=== PATIENT | female | born 1995 | race African-American/Black ===

== ENCOUNTER 2017-08-30 10:13 | Emergency (ER) | payer OTHER, MEDICAID ==
[~2017-08-30] VITALS: Ht 165.1 cm; Wt 55.0 kg
[~2017-08-30 10:13] MED LIST: CYCL-36 PO; DICL50 PO
[2017-08-30 10:15] VITALS: BP 151/65; PULSE 89; RESP 12; TEMP 98.6; O2SAT 99
[2017-08-30] MEDS ORDERED: ONDANSETRON HCL 4 MG/2 ML VIAL IV PUSH ONE (11:45)
[2017-08-30 12:06] LABS: AUTOMATED NEUTROPHIL # 9.9 TH/MM3 (1.8-7.7); BASOPHIL % 0.3 % (0.0-2.0); EOSINOPHIL % 0.4 % (0.0-4.0); HEMO FLAGS DIFF FINAL; LYMPH % 11.6 % (9.0-44.0); LYMPHOCYTE # 1.4 TH/MM3 (1.0-4.8); MEAN CELL VOLUME 90.7 FL (80.0-100.0); MEAN CORPUSCULAR HGB CONC 35.3 % (32.0-36.0); MONO % 5.1 % (0.0-8.0); NEUT % 82.6 % (16.0-70.0); PLATELET COUNT 152 TH/MM3 (150-450); RED BLOOD COUNT 3.97 MIL/MM3 (4.00-5.30); RED CELL DISTRIBUTION WIDTH 13.4 % (11.6-17.2)
[2017-08-30 12:23] LABS: BICARBONATE 23.6 MEQ/L (21.0-32.0); POTASSIUM 3.7 MEQ/L (3.5-5.1)
--- NOTE | 2017-08-30 13:28 | PD ---
HPI Chief Complaint: Related Problem Time Seen by Provider: 11:23 Travel History International Travel<30 days: No Contact w/Intl Traveler<30days: No Traveled to known affect area: No History of Present Illness HPI 21yo F who is [id number] by LMP of 06/25/17 here with c/o nausea and vomiting. Denies any fever, chest pain, sob, abdominal pain, dysuria, hematuria , vaginal discharge or bleeding. Pt had an US this already. PFSH Past Medical History Medical History: Denies Significant Hx Diminished Hearing: No Immunizations Current: No Influenza Vaccination: No ?: LMP: 06/25/17 Past Surgical History Surgical History: No Previous Surgery Social History Alcohol Use: No (RARE, PT DENIES) Tobacco Use: No (RARE, PT DENIES) Substance Use: No Allergies-Medications (Allergen,Severity, Reaction): Coded Allergies: No Known Allergies (Unverified , 11/02/14) Reported Meds & Prescriptions Reported Meds & Active Scripts Active Zofran Odt (Ondansetron Odt) 4 Mg Tab 4 Mg SL Q12HR PRN Flexeril (Cyclobenzaprine HCl) 10 Mg Tab 10 Mg PO TID Voltaren (Diclofenac Sodium) 50 Mg Tabec 50 Mg PO TID Review of Systems Except as stated in HPI: all other systems reviewed are Neg Physical Exam Narrative GENERAL: 21yo F not in distress. SKIN: Focused skin assessment warm/dry. HEAD: Atraumatic. Normocephalic. EYES: Pupils equal and round. No scleral icterus. No injection or drainage. CARDIOVASCULAR: Regular rate and rhythm. No murmur appreciated. RESPIRATORY: No accessory muscle use. Clear to auscultation. Breath sounds equal bilaterally. GASTROINTESTINAL: Abdomen soft, non-tender, nondistended. No rebound tenderness or guarding. MUSCULOSKELETAL: No obvious deformities. No clubbing. No cyanosis. No edema. NEUROLOGICAL: Awake and alert. No obvious cranial nerve deficits. Motor grossly within normal limits. Normal speech. PSYCHIATRIC: Appropriate mood and affect; insight and judgment normal. Data Data Last Documented VS Vital Signs Date Time Temp Pulse Resp B/P (MAP) Pulse Ox O2 Delivery O2 Flow Rate FiO2 08/30/17 10:15 98.6 89 12 151/65 (93) 99 Orders Orders Ondansetron Inj (Zofran Inj) (08/30/17 11:45) Complete Blood Count With Diff (08/30/17 11:37) Basic Metabolic Panel (Bmp) (08/30/17 11:37) Beta Hcg (Quant/Titer) (08/30/17 11:37) Urinalysis - C+S If Indicated (08/30/17 11:37) Ed Poc Ultrasound (08/30/17 ) Ed Poc Ultrasound (08/30/17 ) Ed Discharge Order (08/30/17 14:17) Labs Laboratory Tests Test 08/30/17 11:55 08/30/17 13:15 White Blood Count 12.0 TH/MM3 Red Blood Count 3.97 MIL/MM3 Hemoglobin 12.7 GM/DL Hematocrit 36.0 % Mean Corpuscular Volume 90.7 FL Mean Corpuscular Hemoglobin 32.0 PG Mean Corpuscular Hemoglobin Concent 35.3 % Red Cell Distribution Width 13.4 % Platelet Count 152 TH/MM3 Mean Platelet Volume 10.4 FL Neutrophils (%) (Auto) 82.6 % Lymphocytes (%) (Auto) 11.6 % Monocytes (%) (Auto) 5.1 % Eosinophils (%) (Auto) 0.4 % Basophils (%) (Auto) 0.3 % Neutrophils # (Auto) 9.9 TH/MM3 Lymphocytes # (Auto) 1.4 TH/MM3 Monocytes # (Auto) 0.6 TH/MM3 Eosinophils # (Auto) 0.0 TH/MM3 Basophils # (Auto) 0.0 TH/MM3 CBC Comment DIFF FINAL Differential Comment Blood Urea Nitrogen 5 MG/DL Creatinine 0.61 MG/DL Random Glucose 82 MG/DL Calcium Level 9.1 MG/DL Sodium Level 138 MEQ/L Potassium Level 3.7 MEQ/L Chloride Level 108 MEQ/L Carbon Dioxide Level 23.6 MEQ/L Anion Gap 6 MEQ/L Estimat Glomerular Filtration Rate 147 ML/MIN Human Chorionic Gonadotropin, Quant 881266 MIU/ML Urine Color YELLOW Urine Turbidity HAZY Urine pH 5.5 Urine Specific Stanley 1.023 Urine Protein TRACE mg/dL Urine Glucose (UA) NEG mg/dL Urine Ketones 80 mg/dL Urine Occult Blood NEG Urine Nitrite NEG Urine Bilirubin NEG Urine Urobilinogen LESS THAN 2.0 MG/DL Urine Leukocyte Esterase NEG Urine RBC 1 /hpf Urine WBC 1 /hpf Urine Squamous Epithelial Cells 4 /hpf Urine Mucus FEW /lpf Microscopic Urinalysis Comment CULT NOT INDICATED MDM Medical Decision Making Medical Screen Exam Complete: Yes Emergency Medical Condition: Yes Differential Diagnosis Hyperemesis gravidarum vs. UTI Narrative Course 21yo F with early here with nausea and vomiting. Pt denies any abdominal pain, vaginal bleeding or discharge. Labs reviewed, WBC 12. BMP unremarkable. bHCG [id number]. UA showed 80 ketones. WBC 1. Culture not indicated. Bedside US showed IUP with FHR and movement. Pt given zofran and nausea improved. Pt is tolerating PO now. Return precautions given. Procedures Procedure Narrative Emergency Department Pelvic ultrasound was performed with patient consent. The curvilinear probe was used in the transverse and sagittal views within the suprapubic region revealing single intrauterine . heart rate was 169bpm. Diagnosis Primary Impression: Nausea/vomiting in Patient Instructions: General Instructions Departure Forms: Tests/Procedures Additional Instructions: Please follow up with your OBGYN in 2-3 days. Return to the ED if symptoms worsen. Med/Other Pt SpecificInfo: Prescription(s) given Scripts Ondansetron Odt (Zofran Odt) 4 Mg Tab 4 MG SL Q12HR Y for Nausea/Vomiting, #6 TAB 0 Refills Prov: Dulce Michaud DO 08/30/17 Disposition: 01 DISCHARGE HOME Condition: Stable Dulce Michaud DO Aug 30, 2017 13:28
[2017-08-30 13:53] LABS: BLOOD, URINE NEG (NEG); COMMENT (UR) CULT NOT INDICATED; CULTURE IF INDICATED CULT NOT INDICATED; GLUCOSE,URINE NEG (NEG); KETONE, URINE 80 mg/dL (NEG); MUCUS URINE FEW /lpf (OCC); NITRITE,URINE NEG (NEG); PH, URINE 5.5 (5.0-8.5); SQUAMOUS EPITHELIAL CELL URINE 4 /hpf (0-5); URINE COLOR YELLOW (YELLW/STRAW)
[2017-08-30] MEDS ORDERED: ZOFR4TAB3 SL (14:17)
[2017-08-30 14:26] VITALS: BP 134/70
== END 2017-08-30 14:45 | disposition home or self-care (01) ==
LOC: NEPD 10:13
DX: O21.9 Vomiting of pregnancy, unspecified (principal); Z3A.09 9 weeks gestation of pregnancy
CPT/HCPCS: 80048; 81001; 84702; 85025; 96374; 99285; J2405

== ENCOUNTER 2018-03-16 23:51 | Inpatient (IN) | payer OTHER, MEDICAID ==
[~2018-03-16] VITALS: Ht 165.1 cm; Wt 59.0 kg
[~2018-03-16 23:51] MED LIST changes: +ZOFR4TAB3 SL
[2018-03-17] MEDS: LACTATED RINGER'S 1000 ML INJ 1,000 ML IV SCH ×2 (00:17→16:17)
[2018-03-17] MEDS ORDERED: LACTATED RINGER'S 1000 ML INJ 1,000 ML IV PRN (00:17)
[2018-03-17] MEDS ORDERED: LIDOCAINE HCL 1% PF 30 ML VIAL ONE (00:28)
[2018-03-17] MEDS ORDERED: OXYTOCIN 30 UNITS-500ML PREMIX 500 ML IV ONE (00:30)
[2018-03-17] MEDS ORDERED: LIDOCAINE HCL 1% 50 ML VIAL I-DERMAL PRN (00:30)
[2018-03-17] MEDS ORDERED: CITRIC ACID-SODIUM CITRATE LIQ 30 ML UDC PO SCH (00:30)
[2018-03-17] MEDS ORDERED: LIDOCAINE HCL 1% 50 ML VIAL INFIL PRN (00:30)
[2018-03-17] MEDS ORDERED: MINERAL OIL 10 ML VIAL TOPICAL PRN (00:30)
[2018-03-17] MEDS ORDERED: SODIUM CHLORID 0.9% 500 ML INJ 500 ML IV PRN (00:30)
[2018-03-17] MEDS ORDERED: SODIUM CHLOR 0.9% 1000 ML INJ 1,000 ML IV PRN (00:37)
[2018-03-17 00:50] LABS: AUTOMATED NEUTROPHIL # 8.6 TH/MM3 (1.8-7.7); BASOPHIL # 0.1 TH/MM3 (0-0.2); BASOPHIL % 0.9 % (0.0-2.0); EOSINOPHIL # 0.1 TH/MM3 (0-0.4); EOSINOPHIL % 0.5 % (0.0-4.0); HEMATOCRIT 39.9 % (35.0-46.0); HEMOGLOBIN 13.5 GM/DL (11.6-15.3); LYMPH % 23.7 % (9.0-44.0); MEAN CELL VOLUME 87.9 FL (80.0-100.0); MEAN CORPUSCULAR HEMOGLOBIN 29.8 PG (27.0-34.0); MEAN CORPUSCULAR HGB CONC 33.9 % (32.0-36.0); MEAN PLATELET VOLUME 11.5 FL (7.0-11.0); MONO % 7.3 % (0.0-8.0); MONOCYTE # 0.9 TH/MM3 (0-0.9); NEUT % 67.6 % (16.0-70.0); PLATELET COUNT 176 TH/MM3 (150-450); RED BLOOD COUNT 4.54 MIL/MM3 (4.00-5.30); RED CELL DISTRIBUTION WIDTH 13.9 % (11.6-17.2); WHITE BLOOD COUNT 12.8 TH/MM3 (4.0-11.0)
--- NOTE | 2018-03-17 01:04 | HHI.HP ---
History & Physical H&P HPI Chief Complaint ctxs, lof Date Seen: March 17, 2018 Time Seen: 00:55 Travel History International Travel<30 Days: No Contact w/Intl Traveler<30Days: No Known Affected Area: No History of Present Illness HPI pt. is a 22 y/o @ 37 6/7 weeks present w/ c/o ctxs and lof. on present pt. noted to be gross srom and cervix 5/100/0. pt. states had srom at 2200. + FM. Weeks Gestation: 37 Para: 0 : 1 History (Limited) History Past Medical History Medical History: Denies Significant Hx Obstetric History Obstetric History Past Surgical History Surgical History: No Previous Surgery Family History Family History: Negative Social History Alcohol Use: No Tobacco Use: No Substance Abuse: No Allergies-Medications Allergies-Medications (Allergen,Severity, Reaction): Coded Allergies: No Known Allergies (Unverified , 11/02/14) Home Meds Active Scripts Ondansetron Odt (Zofran Odt) 4 Mg Tab, 4 MG SL Q12HR Y for Nausea/Vomiting, #6 TAB 0 Refills Prov:Dulce Michaud DO 08/30/17 Cyclobenzaprine Hcl (Flexeril) 10 Mg Tab, 10 MG PO TID, #21 TAB Prov:Phil Childress MD 11/02/14 Diclofenac Sod (Voltaren) 50 Mg Tabec, 50 MG PO TID, #21 TAB Prov:Phil Childress MD 11/02/14 ROS Review of Systems Except as stated in HPI: all other systems reviewed are Neg Physical Exam Physical Exam Narrative GENERAL: Well-nourished, well-developed patient. SKIN: Warm and dry. HEAD: Normocephalic and atraumatic. EYES: No scleral icterus. No injection or drainage. ENT: No nasal drainage noted. Mucous membranes pink. Airway patent. NECK: Supple, trachea midline. No JVD. CARDIOVASCULAR: Regular rate and rhythm without murmurs, gallops, or rubs. RESPIRATORY: Breath sounds equal bilaterally. No accessory muscle use. ABDOMEN/GI: Abdomen soft, non-tender, bowel sounds present, no rebound, no guarding Gravid GENITOURINARY: External Genitalia: intact and normal in appearance Cervix: ant Dilatation: 5 Effacement: 100 Station: 0 Presentation: cephalic Membranes: ruptured Uterine Contractions: q2min FHT's: Category: 1 Reactive: + Variability: mod EXTREMITIES: No cyanosis or edema. BACK: Nontender without obvious deformity. No CVA tenderness. NEUROLOGICAL: Awake and alert. Motor and sensory grossly within normal limits. Five out of 5 muscle strength in all muscle groups. Normal speech. Data Data Data Vital Signs Reviewed: Yes Orders Orders Ob (2e) Additional Admit Info (03/17/18 00:11) Admit To Inpatient (03/17/18 ) Code Status (03/17/18:17) Vital Signs (Adult) .Per protocol (03/17/18:17) Activity Oob Ad Katlin (03/17/18:17) Heart (03/17/18:17) Amnioinfusion (03/17/18:17) Urinary Catheter Management .ONCE (03/17/18:17) Diet Liquid (03/17/18 Breakfast) Lactated Ringer's 1000 Ml Inj (Lr 1000 M (03/17/18 00:17) Lactated Ringer's 1000 Ml Inj (Lr 1000 M (03/17/18 00:17) Sodium Chlorid 0.9% 500 Ml Inj (Ns 500 M (03/17/18 00:30) Sodium Chlor 0.9% 1000 Ml Inj (Ns 1000 M (03/17/18 00:37) Lidocaine 1% Inj (50 Ml) (Xylocaine 1% I (03/17/18 00:30) Citric Acid-Sodium Citrate Liq (Bicitra (03/17/18 00:30) Fentanyl Inj (Fentanyl Inj) (03/17/18 00:30) Fentanyl Inj (Fentanyl Inj) (03/17/18 00:30) Complete Blood Count With Diff (03/17/18:17) Hold Clot (03/17/18:17) Abo/Rh Blood Type (03/17/18:17) Urinalysis - C+S If Indicated (03/17/18 00:17) Drug Screen, Random Urine (03/17/18 00:17) Ob/Psych Drug Screen, Urine (03/17/18:17) Resp Oxygen Non Rebreathe Mask (03/17/18 ) ^ Epidural / Intrathecal Infus (03/17/18 00:17) Oxytocin 30 Units-500ml Premix (Pitocin (03/17/18 00:30) Lidocaine 1% Inj (50 Ml) (Xylocaine 1% I (03/17/18 00:30) Light Mineral Oil (Muri-Lube Oil) (03/17/18 00:30) Inpatient Certification (03/17/18 ) Lidocaine Pf 1% Inj (Xylocaine-Mpf 1% In (03/17/18 00:28) Labs Laboratory Tests Test 03/17/18 00:20 White Blood Count 12.8 Red Blood Count 4.54 Hemoglobin 13.5 Hematocrit 39.9 Mean Corpuscular Volume 87.9 Mean Corpuscular Hemoglobin 29.8 Mean Corpuscular Hemoglobin Concent 33.9 Red Cell Distribution Width 13.9 Platelet Count 176 Mean Platelet Volume 11.5 Neutrophils (%) (Auto) 67.6 Lymphocytes (%) (Auto) 23.7 Monocytes (%) (Auto) 7.3 Eosinophils (%) (Auto) 0.5 Basophils (%) (Auto) 0.9 Neutrophils # (Auto) 8.6 Lymphocytes # (Auto) 3.0 Monocytes # (Auto) 0.9 Eosinophils # (Auto) 0.1 Basophils # (Auto) 0.1 CBC Comment DIFF FINAL Differential Comment MDM MDM Medical Record Reviewed: Yes Plan pt. in active labor. fht reassuring. will admit to l&d. stadol vs epidural for analgesia. will continue to follow. Diagnosis Diagnosis: Primary Impression: SROM (spontaneous rupture of membranes) Additional Impression: 37 weeks gestation of Malik Bennett Jr., MD March 17, 2018 01:04
--- NOTE | 2018-03-17 02:10 | PD.OB.DELI ---
Weeks gestation: 37 Pt started active labor?: Yes Medical induction of labor?: No Artificial rupture of membrane: No Anesthesia: None Episiotomy: None Vaginal Delivery: Normal, Spontaneous Presentation: Occiput anterior Nuchal Cord: x2 Delayed cord clamping (45 sec): Yes Infant: Female Delivery date: March 17, 2018 Delivery time: 01:21 One Minute : 8 Five Minute : 9 Weight: 1685gms Placenta: Spontaneous delivery, Intact Laceration: Perineal laceration Repair: Vicryl interrupted Estimated blood loss: 400 Malik Bennett Jr., MD March 17, 2018 02:10
[2018-03-17] MEDS ORDERED: oxyCODONE/ACETAMINOPHEN 5 MG/325 MG TAB PO PRN ×2 (02:15)
[2018-03-17] MEDS ORDERED: BENZOCAINE 20% TOPICAL SPRAY 60 ML CAN TOPICAL PRN (02:15)
[2018-03-17] MEDS ORDERED: OXYTOCIN 30 UNITS-500ML PREMIX 500 ML IV SCH (02:15)
[2018-03-17] MEDS ORDERED: ACETAMINOPHEN 325 MG TAB PO PRN (02:15)
[2018-03-17] MEDS ORDERED: ALUMINUM/MAGNESIUM/SIMETH 30 ML CUP PO PRN (02:15)
[2018-03-17] MEDS ORDERED: SODIUM CHLORIDE 0.9% FLUSH 10 ML FLUSH IV FLUSH PRN (02:15)
[2018-03-17] MEDS ORDERED: WITCH HAZEL 50%/GLYCERIN 12.5% 40 PAD JAR TOPICAL PRN (02:15)
[2018-03-17] MEDS ORDERED: ZOLPIDEM TARTRATE 5 MG TAB PO PRN (02:15)
[2018-03-17] MEDS ORDERED: ONDANSETRON ODT 4 MG TAB PO PRN (02:15)
[2018-03-17] MEDS ORDERED: DOCUSATE SODIUM 50 MG/SENNA 8.6 MG TAB PO PRN (02:15)
[2018-03-17 04:10] LABS: BACTERIA, URINE RARE /hpf; BILIRUBIN, URINE NEG (NEG); BLOOD, URINE LARGE (NEG); GLUCOSE,URINE NEG (NEG); KETONE, URINE 10 mg/dL (NEG); MUCUS URINE FEW /lpf (OCC); NITRITE,URINE NEG (NEG); SQUAMOUS EPITHELIAL CELL URINE <1 /hpf (0-5); URINE COLOR YELLOW (YELLW/STRAW); URINE LEUKOCYTE ESTERASE TRACE (NEG)
[2018-03-17] MEDS: SODIUM CHLORIDE 0.9% FLUSH 10 ML FLUSH IV FLUSH SCH (09:00)
[2018-03-17] MEDS ORDERED: DIPHTH/TETANUS/ACEL PERTUSSIS (BOOSTER) 0.5 ML VIAL/PFS IM ONE (16:00)
[2018-03-17] MEDS ORDERED: MEASLES, MUMPS, RUBELLA VACCINE 0.5 ML VIAL SQ ONE (16:00)
[2018-03-17 20:06] VITALS: BP 144/85; PULSE 54; RESP 17; TEMP 98.3
--- NOTE | 2018-03-18 08:35 | HHI.OB ---
Subjective Post Day: 1 Remarks Patient seen and examined this morning. AFVSS overnight. day #1. no pain. Decreased lochia. dysuria improved compared to yesterday. No breast tenderness. She is . Appetite good. No nausea or vomiting. has passed flatus. no bowel movement. Ambulating well. Denies calf pain, shortness of breath, cough or any mood changes. She otherwise has no other complaints or concerns this morning. Objective Vitals/I&O Vital Signs Date Time Temp Pulse Resp B/P (MAP) Pulse Ox O2 Delivery O2 Flow Rate FiO2 03/17/18 20:06 98.3 54 17 144/85 (104) Objective Remarks GENERAL: Well-nourished, well-developed patient. CARDIOVASCULAR: Regular rate and rhythm without murmurs, gallops, or rubs. RESPIRATORY: Breath sounds equal bilaterally. No accessory muscle use. ABDOMEN/GI: Abdomen soft, non-tender. Fundus: Firm, non-tender below the umbilicus. GENITOURINARY: Light to moderate bleeding. EXTREMITIES: No cyanosis or edema, non-tender, without signs of DVT. Medications and IVs Current Medications Medications (Trade) Dose Ordered Sig/Catarina Route Start Time Stop Time Status Last Admin Lactated Ringer's 1,000 ml @ 125 mls/hr Q8H IV 03/17/18 00:17 03/17/18 00:17 Lactated Ringer's 1,000 ml @ 3,000 mls/hr Q20M PRN IV 03/17/18 00:17 Sodium Chloride 500 ml @ 1,000 mls/hr ONCE PRN IV 03/17/18 00:30 Sodium Chloride 1,000 ml @ 100 mls/hr Q10H PRN IV 03/17/18 00:37 (Xylocaine 1% Inj (50 ml)) 0.1 ml UNSCH X1 PRN I-DERMAL 03/17/18 00:30 03/20/18 00:29 (Bicitra Liq) 30 ml THEATRICAL DRESSER PO 03/17/18 00:30 03/21/18 00:29 (fentaNYL INJ) 50 mcg Q1H PRN IV PUSH 03/17/18 00:30 (fentaNYL INJ) 100 mcg Q1H PRN IV PUSH 03/17/18 00:30 03/17/18 01:04 (Xylocaine 1% Inj (50 ml)) 10 ml UNSCH X1 PRN INFIL 03/17/18 00:30 03/19/18 00:29 (Muri-Lube Oil) 10 ml UNSCH PRN TOPICAL 03/17/18 00:30 (NS Flush) 2 ml BID IV FLUSH 03/17/18 09:00 (NS Flush) 2 ml UNSCH PRN IV FLUSH 03/17/18 02:15 (Tylenol) 650 mg Q4H PRN PO 03/17/18 02:15 (Motrin) 800 mg Q8H PRN PO 03/17/18 02:15 (Percocet 5-325 Mg) 1 tab Q4H PRN PO 03/17/18 02:15 (Percocet 5-325 Mg) 2 tab Q4H PRN PO 03/17/18 02:15 (Americaine 20% Top Spr) 1 spray Q4H PRN TOPICAL 03/17/18 02:15 (Tucks Pads) 1 applic QID PRN TOPICAL 03/17/18 02:15 (Griselda-Colace) 2 tab Q12H PRN PO 03/17/18 02:15 (Ambien) 5 mg HS PRN PO 03/17/18 02:15 (Mag-Al Plus Susp Liq) 15 ml Q8H PRN PO 03/17/18 02:15 (Zofran Odt) 4 mg Q6H PRN PO 03/17/18 02:15 Assessment/Plan Problem List: (1) care following vaginal delivery ICD Codes: Z39.2 - Encounter for routine follow-up Plan: 22 year old PPD#1. - AFVSS - Encouraged OOB, as tolerated - Motrin prn for pain - Advised pelvic rest x 6 weeks - - Contraception: declined at this time - Will f/u with OB provider in 6 weeks Note written by Vadim Charles MS4 Reviewed by Rigoberto Yo, PGY1 Rigoberto Yo MD, R1 March 18, 2018 08:35
[2018-03-18] MEDS: SODIUM CHLORIDE 0.9% FLUSH 10 ML FLUSH IV FLUSH SCH (09:00)
[2018-03-18] MEDS: IBUPROFEN 800 MG TAB PO PRN ×2 (11:09→21:32)
[2018-03-18 20:40] VITALS: BP 138/78; PULSE 62; RESP 18; TEMP 98.4
--- NOTE | 2018-03-19 08:35 | HHI.OB ---
Subjective Post Day: 2 Remarks Patient seen and examined this morning. AFVSS overnight. day #2. Patient states her pain is well controlled. Decreased lochia. Denies dysuria. No breast tenderness. Appetite good. No nausea or vomiting. Ambulating well. Denies fevers or chills, calf pain, shortness of breath, or cough. She otherwise has no other complaints or concerns this morning. Objective Vitals/I&O Vital Signs Date Time Temp Pulse Resp B/P (MAP) Pulse Ox O2 Delivery O2 Flow Rate FiO2 03/18/18 20:40 98.4 62 18 138/78 (98) Objective Remarks GENERAL: Well-nourished, well-developed patient. CARDIOVASCULAR: Regular rate and rhythm without murmurs, gallops, or rubs. RESPIRATORY: Breath sounds equal bilaterally. No accessory muscle use. ABDOMEN/GI: Abdomen soft, non-tender. Fundus: Firm, non-tender below the umbilicus. GENITOURINARY: Light to moderate bleeding. EXTREMITIES: No cyanosis or edema, non-tender, without signs of DVT. Medications and IVs Current Medications Medications (Trade) Dose Ordered Sig/Catarina Route Start Time Stop Time Status Last Admin Lactated Ringer's 1,000 ml @ 125 mls/hr Q8H IV 03/17/18 00:17 03/17/18 00:17 Lactated Ringer's 1,000 ml @ 3,000 mls/hr Q20M PRN IV 03/17/18 00:17 Sodium Chloride 500 ml @ 1,000 mls/hr ONCE PRN IV 03/17/18 00:30 Sodium Chloride 1,000 ml @ 100 mls/hr Q10H PRN IV 03/17/18 00:37 (Xylocaine 1% Inj (50 ml)) 0.1 ml UNSCH X1 PRN I-DERMAL 03/17/18 00:30 03/20/18 00:29 (Bicitra Liq) 30 ml BRAZING MACHINE OPERATOR HELPER PO 03/17/18 00:30 03/21/18 00:29 (fentaNYL INJ) 50 mcg Q1H PRN IV PUSH 03/17/18 00:30 (fentaNYL INJ) 100 mcg Q1H PRN IV PUSH 03/17/18 00:30 03/17/18 01:04 (Muri-Lube Oil) 10 ml UNSCH PRN TOPICAL 03/17/18 00:30 (NS Flush) 2 ml BID IV FLUSH 03/17/18 09:00 (NS Flush) 2 ml UNSCH PRN IV FLUSH 03/17/18 02:15 (Tylenol) 650 mg Q4H PRN PO 03/17/18 02:15 (Motrin) 800 mg Q8H PRN PO 03/17/18 02:15 03/18/18 21:32 (Percocet 5-325 Mg) 1 tab Q4H PRN PO 03/17/18 02:15 (Percocet 5-325 Mg) 2 tab Q4H PRN PO 03/17/18 02:15 (Americaine 20% Top Spr) 1 spray Q4H PRN TOPICAL 03/17/18 02:15 (Tucks Pads) 1 applic QID PRN TOPICAL 03/17/18 02:15 (Griselda-Colace) 2 tab Q12H PRN PO 03/17/18 02:15 (Ambien) 5 mg HS PRN PO 03/17/18 02:15 (Mag-Al Plus Susp Liq) 15 ml Q8H PRN PO 03/17/18 02:15 (Zofran Odt) 4 mg Q6H PRN PO 03/17/18 02:15 Assessment/Plan Problem List: (1) care following vaginal delivery ICD Codes: Z39.2 - Encounter for routine follow-up Plan: 22 year old PPD#2. - AFVSS - Encouraged OOB, as tolerated - Motrin prn for pain - Advised pelvic rest x 6 weeks - - Contraception: Discussed with patient this AM, patient declined at this time - Instructed follow up with OB provider within 6 weeks wdw OB hospitalist Discharge Planning Stable for discharge home today Jose Brooks MD R2 Mar 19, 2018 08:35
--- NOTE | 2018-03-19 08:36 | HHI.DCPOC ---
Discharge Care Plan Diagnosis: (1) care following vaginal delivery Report Symptoms to Your Doctor -Temperature above 100.5 degrees -Redness, of incision or excessive or foul smelling drainage -Unusual pain or calf pain -Increased vaginal bleeding -Painful or difficulty urinating -Feelings of extreme sadness or anxiety after 2 weeks Goals to Promote Your Health * To maintain your health at the optimal level, follow-up with your OB provider within 6 weeks after hospital discharge. Directions to Meet Your Goals Take your medications as prescribed Follow your dietary instruction Follow activity as directed Ensure plenty of rest for recovery Drink fluids for hydration Keep your appointments as scheduled Take your immunizations and boosters as scheduled If your symptoms worsen call your PCP, if no PCP go to Urgent Care Center or Emergency Room Smoking is Dangerous to Your Health. Avoid second hand smoke Call the 24-hour crisis hotline for domestic abuse at Jose Brooks MD R2 Mar 19, 2018 08:36
[2018-03-19] MEDS ORDERED: PERI PO (08:37)
[2018-03-19] MEDS ORDERED: IBUP1TAB7 PO (08:37)
[2018-03-19] MEDS ORDERED: OXYC1TAB63 PO (08:37)
[2018-03-19] MEDS: IBUPROFEN 800 MG TAB PO PRN (09:42)
== END 2018-03-19 10:32 | disposition home or self-care (01) | DRG 775 ==
LOC: HOBED 23:51 → H2EB 03-17 00:13 → H1EA 03-17 03:56
PROVIDERS: ADMIT Obstetrics & Gynecology; ATTEND Obstetrics & Gynecology
PROC: 10E0XZZ Delivery of Products of Conception, External Approach (ICD-10-PCS; principal; 2018-03-17)
PROC: 0KQM0ZZ Repair Perineum Muscle, Open Approach (ICD-10-PCS; 2018-03-17)
DX: O69.81X0 Labor and delivery complicated by cord around neck, without compression, not applicable or unspecified (principal); O70.1 Second degree perineal laceration during delivery; R30.0 Dysuria; Z37.0 Single live birth; Z3A.37 37 weeks gestation of pregnancy
CPT/HCPCS: 80307; 81001; 85025; 86900; 86901; 90715; 99284; J2590; J3010; J7120